=== PATIENT | male | born 1970 | race Two or more races ===

== ENCOUNTER 2019-04-15 08:08 | Outpatient (CLI) | payer OTHER | END 2019-04-15 16:52 | disposition home or self-care (01) | LOC: LAB 08:08 | DX: E03.8 Other specified hypothyroidism (principal); D51.1 Vitamin B12 deficiency anemia due to selective vitamin B12 malabsorption with proteinuria; D50.8 Other iron deficiency anemias; D51.8 Other vitamin B12 deficiency anemias; I10 Essential (primary) hypertension; D55.0 Anemia due to glucose-6-phosphate dehydrogenase [G6PD] deficiency; D51.0 Vitamin B12 deficiency anemia due to intrinsic factor deficiency; E06.3 Autoimmune thyroiditis; K90.89 Other intestinal malabsorption ==

== ENCOUNTER 2019-06-12 13:35 | Outpatient (CLI) | payer OTHER | END 2019-06-12 15:00 | disposition home or self-care (01) | LOC: LAB 13:35 | DX: D59.4 Other nonautoimmune hemolytic anemias (principal); D59.8 Other acquired hemolytic anemias; D55.0 Anemia due to glucose-6-phosphate dehydrogenase [G6PD] deficiency; A49.8 Other bacterial infections of unspecified site ==